=== PATIENT | female | born 1995 | race Two or more races ===

== ENCOUNTER 2021-09-07 16:58 | Emergency (ER) | payer OTHER ==
[~2021-09-07] VITALS: Ht 177.8 cm; Wt 104.3 kg
--- NOTE | 2021-09-07 17:26 | NUR ---
BIBS FOR REQUESTING VOLUNTARY ADMISSION TO PSYCH FACILITY,FEELING DEPRESSED CUT HERSELF 2 DAYS AGO. ALERT AND ORIENTED X4. DENIES HI. DENIES HAVING HALLUCINATIONS. WILL CONTINUE TO MONITOR THE PATIENT.
--- NOTE | 2021-09-07 18:03 | NUR ---
URINE COLLECTED AND SENT TO THE LAB
[2021-09-07 18:50] LABS: BILIRUBIN,URINE NEGATIVE (NEGATIVE); COLOR,URINE YELLOW (YELLOW); LEUKOCYTE ESTERASE ,URINE NEGATIVE (NEGATIVE); NITRITE, URINE NEGATIVE (NEGATIVE); PROTEIN,URINE NEGATIVE (NEGATIVE); UGLUCOSE NEGATIVE (NEGATIVE); UROBILINOGEN,URINE 0.2 EU/dL (0.2)
--- NOTE | 2021-09-07 19:19 | NUR ---
COVID ANTIGEN SWAB DONE AND SENT TO THE LAB
--- NOTE | 2021-09-07 19:32 | NUR ---
REPORT GIVEN TO NURSE HALL FOR [facility]
[2021-09-07 19:50] LABS: ALANINE AMINOTRANSFERASE 27 U/L (12-78); ALBUMIN 3.3 g/dL (3.4-5.0); ALKALINE PHOSPHATASE 104 U/L (46-116); ASPARTATE AMINOTRANSFERASE 26 U/L (15-37); BILIRUBIN,TOTAL 0.2 mg/dL (0.2-1.0); CALCIUM, SERUM 9.5 mg/dL (8.5-10.1); CARBON DIOXIDE 25 mmol/L (21-32); CHLORIDE 101 mmol/L (98-107); CREATININE 0.8 mg/dL (0.6-1.3); GLUCOSE 152 mg/dL (74-106); POTASSIUM 3.8 mmol/L (3.5-5.1); SODIUM SERUM 138 mmol/L (136-145); TOTAL PROTEIN, SERUM 8.2 g/dL (6.4-8.2); UREA NITROGEN, BLOOD 11 mg/dL (7-18)
[2021-09-07 20:26] LABS: BASOPHILS # (AUTO) 0.1 K/uL (0.0-0.2); BASOPHILS % (AUTO) 0.8 % (0.0-2.0); EOSINOPHILS % (AUTO) 1.4 % (0.0-6.0); HEMATOCRIT 43 % (33-45); HEMOGLOBIN 14.3 g/dL (11.5-14.8); LYMPHOCYTES % (AUTO) 28.1 % (20.0-44.0); MEAN CORPUSCULAR HGB CONC 34 g/dl (31.0-36.0); MEAN CORPUSCULAR VOLUME 87 fL (82-100); MONOCYTES # (AUTO) 0.3 K/uL (0.1-1.30); MONOCYTES % (AUTO) 4.8 % (2.0-12.0); NEUTROPHILS # (AUTO) 4.6 K/uL (1.8-8.9); NEUTROPHILS % (AUTO) 64.9 % (43.0-81.0); PLATELET COUNT (AUTO) 253 K/uL (150-450); RED BLOOD CELL COUNT(AUTO) 4.94 MIL/uL (4.0-5.2); WHITE BLOOD COUNT (AUTO) 7.1 K/uL (4.3-11.0)
--- NOTE | 2021-09-07 23:51 | NUR ---
clinicals faxed to [facility]
[2021-09-08 00:06] LABS: ALCOHOL, BLOOD < 3 mg/dL (0-0)
[2021-09-08 00:07] LABS: ACETAMINOPHEN < 2 ug/ml (10-30)
--- NOTE | 2021-09-08 03:38 | NUR ---
PT ACCEPTED AT [facility] UNDER THE CARE OF DR. YEPEZ. CALL [phone] FOR REPORT
--- NOTE | 2021-09-08 03:45 | NUR ---
REPORT GIVEN TO CHICO BOURNE FOR [facility] AT THE [facility].
--- NOTE | 2021-09-08 03:45 | NUR ---
[facility] @ [phone]
--- NOTE | 2021-09-08 04:49 | NUR ---
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
[2021-09-08 04:50] VITALS: BP 133/81
== END 2021-09-08 04:58 ==
LOC: ER 17:16
DX: R45.851 Suicidal ideations (principal); F20.9 Schizophrenia, unspecified; S60.812A Abrasion of left wrist, initial encounter; X78.9XXA Intentional self-harm by unspecified sharp object, initial encounter; Y92.89 Other specified places as the place of occurrence of the external cause; T22.212A Burn of second degree of left forearm, initial encounter; X76.XXXA Intentional self-harm by smoke, fire and flames, initial encounter; R82.4 Acetonuria; R73.9 Hyperglycemia, unspecified; F17.290 Nicotine dependence, other tobacco product, uncomplicated; Z20.822 Contact with and (suspected) exposure to COVID-19; Z79.899 Other long term (current) drug therapy
CPT/HCPCS: 36415; 80048; 80076; 80143; 80307; 80320; 81003; 84703; 85025; 87426; 99285; 99406; C9803; G0480

== ENCOUNTER 2022-04-15 17:02 | Emergency (ER) | payer OTHER ==
[~2022-04-15] VITALS: Ht 175.3 cm; Wt 97.5 kg
[2022-04-15 17:46] LABS: BASOPHILS # (AUTO) 0.1 K/uL (0.0-0.2); BASOPHILS % (AUTO) 0.6 % (0.0-2.0); EOSINOPHILS % (AUTO) 0.8 % (0.0-6.0); HEMATOCRIT 39 % (33-45); HEMOGLOBIN 12.4 g/dL (11.5-14.8); LYMPHOCYTES # (AUTO) 1.9 K/uL (0.8-4.8); LYMPHOCYTES % (AUTO) 19.8 % (20.0-44.0); MEAN CORPUSCULAR HGB CONC 32 g/dl (31.0-36.0); MEAN CORPUSCULAR VOLUME 78 fL (82-100); MONOCYTES # (AUTO) 0.6 K/uL (0.1-1.30); MONOCYTES % (AUTO) 6.8 % (2.0-12.0); NEUTROPHILS # (AUTO) 6.9 K/uL (1.8-8.9); PLATELET COUNT (AUTO) 381 K/uL (150-450); RED BLOOD CELL COUNT(AUTO) 4.96 MIL/uL (4.0-5.2); WHITE BLOOD COUNT (AUTO) 9.5 K/uL (4.3-11.0)
--- NOTE | 2022-04-15 17:54 | NUR ---
URINE SAMPLE COLLECTED AND SENT TO LAB
[2022-04-15 18:08] LABS: CALCIUM, SERUM 9.2 mg/dL (8.5-10.1); CARBON DIOXIDE 26 mmol/L (21-32); CHLORIDE 103 mmol/L (98-107); CREATININE 0.8 mg/dL (0.6-1.3); GLUCOSE 110 mg/dL (74-106); POTASSIUM 3.8 mmol/L (3.5-5.1); SODIUM SERUM 138 mmol/L (136-145); UREA NITROGEN, BLOOD 15 mg/dL (7-18)
[2022-04-15 18:14] LABS: ALANINE AMINOTRANSFERASE 17 U/L (12-78); ALBUMIN 3.7 g/dL (3.4-5.0); ALCOHOL, BLOOD < 3 mg/dL (0-0); ALKALINE PHOSPHATASE 89 U/L (46-116); ASPARTATE AMINOTRANSFERASE 17 U/L (15-37); BILIRUBIN,DIRECT 0.1 mg/dL (0.0-0.2); BILIRUBIN,TOTAL 0.3 mg/dL (0.2-1.0)
[2022-04-15 18:28] LABS: BILIRUBIN,URINE 1+ (NEGATIVE); COLOR,URINE YELLOW (YELLOW); LEUKOCYTE ESTERASE ,URINE NEGATIVE (NEGATIVE); NITRITE, URINE NEGATIVE (NEGATIVE); PH,URINE 6.5 (5.0-8.0); PROTEIN,URINE 1+ mg/dl (NEGATIVE); UGLUCOSE NEGATIVE (NEGATIVE); UROBILINOGEN,URINE 0.2 EU/dL (0.2)
[2022-04-15 18:39] LABS: BACTERIA,URINE RARE /HPF (None Seen); MUCUS,URINE Moderate /LPF (None Seen); WBC,URINE 0-2 /HPF (0-3)
--- NOTE | 2022-04-15 21:54 | NUR ---
[place] [facility]IS[facility] TEAM PAGED FOR EVAL.
[2022-04-16] MEDS ORDERED: QUETIAPINE FUMARATE 25 MG TABLET ONE (01:18)
[2022-04-16] MEDS ORDERED: OLANZAPINE 5 MG TABLET ONE (01:18)
[2022-04-16] MEDS: QUETIAPINE FUMARATE 25 MG TABLET PO ONE (01:20)
[2022-04-16] MEDS: OLANZAPINE 5 MG TABLET PO ONE (01:21)
--- NOTE | 2022-04-16 08:24 | NUR ---
Transfer Note : Accepted to : [facility] Accepted by: Dr Hyde Accepted To: [facility] [id number] Report to: Billie [phone] Condition on transfer: Stable Transfer Reason: Psych-Continuity of care
--- NOTE | 2022-04-16 08:38 | NUR ---
[facility] CALLED FOR TRANSPORT ETA [phone]
[2022-04-16 12:14] VITALS: BP 106/73
--- NOTE | 2022-04-16 12:55 | NUR ---
[facility] [address] [facility] to transport to [facility]. NO acute changes. No obvious distress. Cooperative. Pt aware of plan of care
== END 2022-04-16 13:00 ==
LOC: ER 17:14
DX: R45.851 Suicidal ideations (principal); S61.512A Laceration without foreign body of left wrist, initial encounter; X78.0XXA Intentional self-harm by sharp glass, initial encounter; Y92.89 Other specified places as the place of occurrence of the external cause; Z20.822 Contact with and (suspected) exposure to COVID-19
CPT/HCPCS: 99285; 85025; 80048; 80076; 84703; 81001; 36415; 87426; 80143; 80320; 80307; C9803; G0480